=== PATIENT | male | born 1950 | race Caucasian/White ===

== ENCOUNTER 2017-11-07 08:31 | Emergency (ER) | payer MEDICARE, OTHER ==
[~2017-11-07] VITALS: Ht 162.6 cm; Wt 86.0 kg
[2017-11-07 09:42] LABS: HEMATOCRIT 42.8 % (39.0-50.0); HEMOGLOBIN 14.4 g/dl (14.0-18.0); IMMATURE GRANULOCYTES 0.8 % (0.0-1.0); MEAN CELL VOLUME 85.4 fL CALC (80.0-100.0); MEAN CORPUSCULAR HGB 28.7 pG CALC (26.0-32.0); MEAN CORPUSCULAR HGB CONC 33.6 g/L CALC (32.0-36.0); NEUT# 3.11 thou/uL (1.82-7.42); RED BLOOD COUNT 5.01 mill/uL (4.70-6.10); RED CELL DISTRI WIDTH 13.6 % (11.5-15.5)
[2017-11-07 09:51] LABS: PROTHROMBIN TIME 11.4 SECONDS (9.0-12.5)
[2017-11-07 09:52] LABS: ALBUMIN 4.9 g/dL (3.2-5.0); ALKALINE PHOSPHATASE 45 u/l (38-126); ANION GAP 16 (6-22 (CALC)); BILIRUBIN, TOTAL 0.7 mg/dL (0.0-1.4); BUN 26 mg/dL (8-23); BUN/CREATININE RATIO 26 (12-20 (CALC)); CALCIUM 10.5 mg/dL (8.4-10.2); CARBON DIOXIDE 26 mmol/l (22-30); CHLORIDE 105 mmol/l (95-108); GFR > 60 ML/MIN (>=60 (CALC)); GFR FOR AFR.AMER. > 60 ML/MIN (>=60 (CALC)); GLUCOSE 124 mg/dL (82-115); POTASSIUM 4.9 mmol/l (3.5-5.1); SGOT/AST 39 u/l (19-48); SGPT/ALT 47 u/l (11-66); SODIUM 142 mmol/l (137-146); TOTAL PROTEIN 7.5 g/dL (6.3-8.2)
[2017-11-07] MEDS ORDERED: QUINAPRIL HCL40 MG PO (09:54)
[2017-11-07] MEDS ORDERED: LOPRESSOR25 M1 PO (09:55)
[2017-11-07] MEDS ORDERED: ASPIRIN81 MG PO (09:56)
[2017-11-07] MEDS ORDERED: SIMVASTATIN20 MG PO (09:56)
[2017-11-07] MEDS ORDERED: ALEVE220 M1 PO (09:57)
[2017-11-07] MEDS ORDERED: AMLODIPINE5 MG PO (09:57)
[2017-11-07] MEDS ORDERED: FENOFIBRATE145 MG PO (09:58)
[2017-11-07 10:04] LABS: MYOGLOBIN 61 ng/mL (0 - 121)
[2017-11-07 10:14] LABS: URINE BILIRUBIN - DIPSTICK NEGATIVE (NEGATIVE); URINE BLOOD DIPSTICK NEGATIVE (NEGATIVE); URINE COLOR YELLOW; URINE GLUCOSE - DIPSTICK NEGATIVE (NEGATIVE); URINE KETONE NEGATIVE (NEGATIVE); URINE LEUK ESTERASE NEGATIVE (NEGATIVE); URINE NITRITE - DIPSTICK NEGATIVE (Negative); URINE PROTEIN - DIPSTICK NEGATIVE (NEG-TRACE); URINE UROBILINOGEN - DIPSTICK 0.2 E.U./dL (0.2)
[2017-11-07 10:35] LABS: URINE CLARITY CLEAR
[2017-11-07] MEDS ORDERED: MECLIZINE25 MG PO (12:10)
[2017-11-07 12:24] VITALS: BP 137/92
== END 2017-11-07 12:25 | disposition home or self-care (01) ==
LOC: ED 08:31
PROVIDERS: Emergency Medicine
DX: R42 Dizziness and giddiness (principal); I10 Essential (primary) hypertension; R00.1 Bradycardia, unspecified; Z79.1 Long term (current) use of non-steroidal anti-inflammatories (NSAID); R94.31 Abnormal electrocardiogram [ECG] [EKG]